=== PATIENT | male | born 1935 | race Caucasian/White ===

== ENCOUNTER 2017-04-27 16:38 | Inpatient (IN) ==
[2017-04-27] MEDS ORDERED: Ipratropium/Albuterol Neb 3 ML IH ONE ×2 (16:51→19:07)
--- NOTE | 2017-04-27 16:54 | Emergency Department Note ---
Disposition Clinical Impression: Acute exacerbation of chronic obstructive airways disease, Cardiac enzymes elevated Disposition: Admitted As Inpatient Condition: Fair Referrals: Enrrique Perez MD [Primary Care Provider] - Forms: ED Satisfaction Letter Time of Disposition: 19:09 SOB HPI - General Chief Complaint: ED Shortness of Breath/Dyspnea Stated Complaint: PRAVEENA Time Seen by Provider: 04/27/17 16:47 Source: patient Mode of arrival: ambulatory Limitations: no limitations Nursing Notes Reviewed: Yes Vital Signs Reviewed: Yes - History of Present Illness 81-year-old male who was seen by the urgent care last week started on Levaquin. Had a fever although today he's not febrile. He saw his doctor today and his concern was that he has pneumonia. states that he does not appear to be getting better from a respiratory point of view. 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 Consistency/Duration: constant Improves with: nothing Worsens with: exertion Known history of: COPD, congestive heart failure Associated symptoms: Reports: cough, wheezing Treatment prior to arrival: none - Related Data Home Medications Medication Instructions Recorded Confirmed Albuterol Sulfate [Proair 2 puff IH PRN PRN 09/07/15 04/08/17 Respiclick] Allopurinol [Zyloprim 100 MG] 100 mg PO DAILY 09/07/15 04/08/17 Aspirin 81 mg PO DAILY 09/07/15 04/08/17 Budesonide/Formoterol 160/4.5 2 puff IH BIDR 09/07/15 04/08/17 [Symbicort 160/4.5] Ezetimibe [Zetia] 10 mg PO DAILY 09/07/15 04/08/17 Furosemide [Lasix] 20 mg PO DAILY 09/07/15 04/08/17 Ipratropium/Albuterol Neb [Duoneb] 3 ml IH Q6HR PRN 09/07/15 04/08/17 Omeprazole [PriLOSEC] 20 mg PO DAILY 09/07/15 04/08/17 Gabapentin [Neurontin] 300 mg PO HS 12/02/16 04/08/17 Lisinopril [Zestril] 20 mg PO DAILY 12/02/16 04/08/17 Metoprolol XL (24 HR) Succ [Toprol 100 mg PO DAILY 12/02/16 04/08/17 Xl] Oxygen 2 l NS HS 12/02/16 04/08/17 Previous Rx's Medication Instructions Recorded Ondansetron ODT [Zofran ODT] 4 mg SL Q6HR PRN #15 tab.rapdis 01/16/17 Albuterol Neb [Proventil Neb] 2.5 mg IH QID PRN #120 inhsol 04/24/17 Promethazine/Codeine 5 - 10 ml PO Q8HR PRN 6 Days #120 04/24/17 [Phenergan/Codeine] ml levoFLOXacin [Levaquin] 250 mg PO DAILY #10 tablet 04/24/17 Allergies Allergy/AdvReac Type Severity Reaction Status Date / Time ibuprofen Allergy See Verified 04/08/17 14:29 Comments Aveyskh-Gzd-Wnn Reductase Allergy Swelling Verified 04/08/17 14:29 Inhibitor of [Statins] Lip/Tongue/Throat Verapamil Allergy See Verified 04/08/17 14:29 Comments All systems ED: reviewed and negative except as stated. Constitutional: Denies: fever, chills, weakness, weight change Eyes: Denies: eye pain, eye discharge, vision change ENT ED: Denies: ear pain, throat pain, dental pain, hearing loss, epistaxis, congestion, dysphagia Cardiovascular: Denies: chest pain, palpitations, dyspnea on exertion, edema, syncope Respiratory: Reports: cough, dyspnea, wheezes. Denies: hemoptysis, stridor Gastrointestinal: Denies: abdominal pain, nausea, vomiting, diarrhea, constipation, hematemesis, melena, hematochezia Genitourinary: Denies: urgency, dysuria, frequency, hematuria Musculoskeletal: Denies: back pain, neck pain, arthralgia, myalgia Integumentary: Denies: rash, abrasion, lesions Neurological: Denies: headache, weakness, numbness, paresthesias, confusion, abnormal gait, vertigo Psychiatric: Denies: anxiety, depression, suicidal thoughts, homicidal thoughts , auditory hallucinations, visual hallucinations Endocrine: Denies: fatigue Hematological/Lymphatic: Denies: easy bleeding, easy bruising Allergic/Immunologic: Denies: facial swelling, urticaria Past Medical History - Past Medical History Medical history: Reports: hypertension Surgical history: Reports: appendectomy, cataract, orthopedic, other, other Psychiatric history: Reports: anxiety - Social History Smoking Status: Never smoker Smokeless Tobacco Status: No Alcohol use: Reports: occasionally Drug use: Reports: none Physical Exam - General Limitations: no limitations General appearance: alert, in no apparent distress - Head Head exam: atraumatic, normocephalic, normal inspection - Eye Eye exam: Present: normal appearance, PERRL, EOMI - ENT ENT exam: normal exam, normal oropharynx, mucous membranes moist - Neck Neck exam: Present: normal inspection, full ROM, trachea midline - Chest Chest inspection: Present: normal inspection, symmetric chest wall rise - Respiratory Respiratory exam: Present: wheezes, accessory muscle use, prolonged expiratory phase - Cardiovascular Cardiovascular exam: Present: regular rate, normal rhythm, normal heart sounds - Abdominal Exam Abdominal exam: Present: soft, Non-Tender. Absent: tenderness, distention, guarding, rebound, rigidity - Extremities Exam Extremities exam: Present: normal inspection, full ROM. Absent: tenderness, pedal edema - Expanded Lower Extremity Exam Neurovascular/Tendon exam: Absent: motor deficit, sensory deficit, tendon deficit Gait: observed and normal - Back Exam Back exam: Present: normal inspection, full ROM. Absent: tenderness - Neurological Exam Neurological exam: Present: alert, oriented X3 - Psychiatric Psychiatric exam: Present: normal affect, normal mood - Skin Skin exam: Present: warm, dry, intact, normal color Course - Reevaluation(s) Reevaluation #1: 81-year-old comes in with increasing shortness of breath history of COPD. Also has a history of CHF. Chest x-ray shows no acute findings, normal BNP. Troponin is slightly elevated at 0.07. Time: 19:08 - Consultations Consultation #1: Discussed with , admit. Time: 19:16 Vital Signs Temperature 98.9 F 04/27/17 16:40 Pulse Rate 83 04/27/17 16:40 Respiratory Rate 16 04/27/17 16:40 Blood Pressure 116/72 04/27/17 16:40 O2 Sat by Pulse Oximetry 93 04/27/17 16:40 Temperature 98.9 F 04/27/17 16:40 Pulse Rate 79 04/27/17 19:14 Respiratory Rate 12 04/27/17 19:14 Blood Pressure 117/66 04/27/17 19:14 O2 Sat by Pulse Oximetry 98 04/27/17 19:14 Oxygen Delivery Oxygen Delivery Room Air Shortness of Breath/Dyspnea - Lab Data Lab results reviewed: Yes I reviewed the patient's lab results. Result diagrams: 04/27/17 17:07 04/27/17 17:07 Lab Results 04/27/17 04/27/17 04/27/17 Range/Units 17:07 17:07 17:07 WBC 6.1 (4.3-11.1) K/mcL RBC 3.02 L (4.19-5.50) M/mcL Hgb 10.2 L (12.9-16.9) g/dL Hct 30.8 L (37.5-50.1) % MCV 102.0 H (83.0-100.0) fL MCH 33.8 H (28.0-33.3) pg MCHC 33.1 (31.6-35.5) g/dL RDW 14.6 H (11.5-14.5) % Plt Count 115 L (140-400) K/mcL MPV 10.0 (9.4-12.4) fL Immature Gran % 0.7 (0-4) % Seg Neutrophils % 56.2 % Lymphocytes % 32.8 % Monocytes % 8.8 % Eosinophils % 1.0 % Basophils % 0.5 % Neutrophils # 3.5 (1.6-8.9) K/mcL Lymphocytes # 2.0 (0.6-4.6) K/mcL Monocytes # 0.5 (0.0-1.3) K/mcL Eosinophils # 0.1 (0.0-0.6) K/mcL Basophils # 0.0 (0.0-0.2) K/mcL Sodium 127 L (136-145) mEq/L Potassium 4.5 (3.5-5.1) mEq/L Chloride 95 L (98-107) mEq/L Carbon Dioxide 23 (23-29) mEq/L BUN 45 H (8-23) mg/dL Creatinine 2.48 H (0.70-1.30) mg/dL Est GFR ( Amer) 31 L (> 60) Est GFR (Non-Af Amer) 25 L (> 60) BUN/Creatinine Ratio 18 (6-26) Glucose 120 H (70-105) mg/dL Calculated Osmolality 277 L (280-300) Lactic Acid 1.4 (0.5-2.2) mmol/L Calcium 8.7 (8.6-10.3) mg/dL Troponin I (< 0.04) ng/mL B-Natriuretic Peptide (Less than 100) pg/mL 04/27/17 04/27/17 Range/Units 17:07 17:07 WBC (4.3-11.1) K/mcL RBC (4.19-5.50) M/mcL Hgb (12.9-16.9) g/dL Hct (37.5-50.1) % MCV (83.0-100.0) fL MCH (28.0-33.3) pg MCHC (31.6-35.5) g/dL RDW (11.5-14.5) % Plt Count (140-400) K/mcL MPV (9.4-12.4) fL Immature Gran % (0-4) % Seg Neutrophils % % Lymphocytes % % Monocytes % % Eosinophils % % Basophils % % Neutrophils # (1.6-8.9) K/mcL Lymphocytes # (0.6-4.6) K/mcL Monocytes # (0.0-1.3) K/mcL Eosinophils # (0.0-0.6) K/mcL Basophils # (0.0-0.2) K/mcL Sodium (136-145) mEq/L Potassium (3.5-5.1) mEq/L Chloride (98-107) mEq/L Carbon Dioxide (23-29) mEq/L BUN (8-23) mg/dL Creatinine (0.70-1.30) mg/dL Est GFR ( Amer) (> 60) Est GFR (Non-Af Amer) (> 60) BUN/Creatinine Ratio (6-26) Glucose (70-105) mg/dL Calculated Osmolality (280-300) Lactic Acid (0.5-2.2) mmol/L Calcium (8.6-10.3) mg/dL Troponin I 0.07 H* (< 0.04) ng/mL B-Natriuretic Peptide 41 (Less than 100) pg/mL - Radiology Data Radiology results reviewed: Yes I reviewed the patient's radiology results. Chest X-Ray 04/27/17 16:51 IMPRESSION: No acute process. Stable exam. D/ / Nabil Katz MD / Nabil Katz MD Interpreting Provider: Nabil Katz MD - EKG Data EKG attestation: Yes I reviewed and interpreted this EKG. EKG shows normal: Reports: sinus rhythm Rate: Reports: normal Rhythm: Reports: NSR, PAC's Interpretation: Reports: no acute changes
[2017-04-27 17:19] LABS: Basophils % 0.5 %; Eosinophils # 0.1 K/mcL (0.0-0.6); Hematocrit 30.8 % (37.5-50.1); Hemoglobin 10.2 g/dL (12.9-16.9); Immature Granulocytes % 0.7 % (0-4); Lymphocytes % 32.8 %; Mean Corpuscular HGB Conc 33.1 g/dL (31.6-35.5); Mean Corpuscular Hemoglobin 33.8 pg (28.0-33.3); Monocytes # 0.5 K/mcL (0.0-1.3); Monocytes % 8.8 %; Neutrophils # 3.5 K/mcL (1.6-8.9); Platelet Count 115 K/mcL (140-400); Red Blood Count 3.02 M/mcL (4.19-5.50); Red Cell Distribution Width 14.6 % (11.5-14.5); Segmented Neutrophils % 56.2 %
[2017-04-27 17:31] LABS: Calcium 8.7 mg/dL (8.6-10.3); Potassium 4.5 mEq/L (3.5-5.1)
[2017-04-27] MEDS ORDERED: methylPREDNISolone 125 MG/2 ML VIAL IVP ONE (19:07)
--- NOTE | 2017-04-27 19:48 | Internal Med History&Physical ---
Date of Encounter: 04/27/17 Time of Encounter: 19:45 Assessment and Plan (1) HOMER (acute kidney injury) Current visit: Yes Status: Acute Acute on chronic kidney failure was started on IV hydration does not improve or consult nephrology (2) Hyperlipemia Current visit: Yes Status: Chronic Chronic we will recheck in a.m. Qualifiers: Hyperlipidemia type: pure hypercholesterolemia Qualified Code(s): E78.00 - Pure hypercholesterolemia, unspecified; E78.0 - Pure hypercholesterolemia (3) Acute exacerbation of chronic obstructive airways disease Current visit: Yes Status: Acute Acute COPD exacerbation due to bronchitis. Patient on steroids and DuoNeb and Levaquin (4) Cardiac enzymes elevated Current visit: Yes Status: Acute Elevated troponin probably due to her renal failure with transient troponin (5) Bronchitis Current visit: No Status: Acute Acute bronchitis partially treated with Levaquin by mouth at patient (6) Alcohol use Current visit: No Status: Chronic (7) CKD (chronic kidney disease) stage 3, GFR 30-59 ml/min Current visit: No Status: Chronic Internal Medicine - H&P: HPI Chief complaint: sob and wheezing Admitted From: Emergency Dept Plans for Post Hospital Care: Home History of present illness: Mr. Vasquez is a 81 year old male Patient with history of COPD, hypertension, high cholesterol, congestive heart failure, CKd, alcohol use, CAD . Patient was seen in urgent care center due to fever chills and shortness of breath and wheezing and was prescribed Levaquin on Wednesday the patient is not getting better and then brought back to the emergency room concern for pneumonia patient continues to cough, more shortness of breath and congestion chest x-ray emergency room does not show pneumonia the patient is wheezing he be admitted for further evaluation troponin is mildly elevated 0.07 is not having any chest pain. Past Med Surg Social Fam HX - Past Medical History Medical history: CHF, COPD, coronary artery disease, hyperlipidemia, hypertension Psychiatric history: anxiety - Past Surgical History Surgical History: appendectomy, cataract, orthopedic, other, other - Social History Smoking Status: Never smoker Smokeless Tobacco Status: No Alcohol use: occasionally Drug use: none - Family History Mother Family Member Ethnicity: Non- Living Status: Hx Family Cardiac Disorders: No Hx Family Respiratory Disorders: No Hx Family Cancer: No Hx Family GI Disorders: No Hx Family Endocrine Disorder: No Hx Family Neuromuscular Disorders: No Hx Family Neurologic Disorders: No Hx Family HEENT Disorders: No Hx Family Autoimmune Disorders: No Internal Medicine - H&P: Meds Albuterol Sulfate [Proair Respiclick] 2 puff IH PRN PRN 09/07/15 [History] Allopurinol [Zyloprim 100 MG] 100 mg PO DAILY 09/07/15 [History] Aspirin 81 mg PO DAILY 09/07/15 [History] Budesonide/Formoterol 160/4.5 [Symbicort 160/4.5] 2 puff IH BIDR 09/07/15 [ History] Ezetimibe [Zetia] 10 mg PO DAILY 09/07/15 [History] Furosemide [Lasix] 20 mg PO DAILY 09/07/15 [History] Ipratropium/Albuterol Neb [Duoneb] 3 ml IH Q6HR PRN 09/07/15 [History] Omeprazole [PriLOSEC] 20 mg PO DAILY 09/07/15 [History] Gabapentin [Neurontin] 300 mg PO HS 12/02/16 [History] Lisinopril [Zestril] 20 mg PO DAILY 12/02/16 [History] Metoprolol XL (24 HR) Succ [Toprol Xl] 100 mg PO DAILY 12/02/16 [History] Oxygen 2 l NS HS 12/02/16 [History] Albuterol Neb [Proventil Neb] 2.5 mg IH QID PRN #120 inhsol 04/24/17 [Rx] Promethazine/Codeine [Phenergan/Codeine] 5 - 10 ml PO Q8HR PRN 6 Days #120 ml [Rx] levoFLOXacin [Levaquin] 250 mg PO DAILY #10 tablet 04/24/17 [Rx] Cyanocobalamin (Vitamin B-12) [Vitamin B12] 1,000 mcg PO DAILY 04/27/17 [History ] Lidocaine Patch [Lidoderm 5% patch] 1 - 2 patch TD DAILY PRN 04/27/17 [History] Multivitamin [One Daily Multivitamin] 1 each PO DAILY 04/27/17 [History] 3 Allergy/AdvReac Type Severity Reaction Status Date / Time ibuprofen Allergy See Verified 04/08/17 14:29 Comments Whxwsiy-Ifw-Afu Reductase Allergy Swelling Verified 04/08/17 14:29 Inhibitor of [Statins] Lip/Tongue/Throat Verapamil Allergy See Verified 04/08/17 14:29 Comments All Systems PM: A 10-system review of systems was performed and is negative for pertinent findings except as documented above in the HPI. - Constitutional Constitutional: chills, fever(s) - EENT Eyes: no change in vision, no discharge, no pain, no photophobia Ears: no ear discharge, no ear pain, no tinnitus Nose, mouth and throat: no dysphagia, no nasal discharge, no neck pain, no sore throat - Cardiovascular Cardiovascular ROS IM: dyspnea, dyspnea on exertion - Respiratory Respiratory: cough, dyspnea, dyspnea on exertion - Gastrointestinal Gastrointestinal: no abdominal pain, no diarrhea, no hematemesis, no hematochezia, no melena, no nausea, no vomiting - Musculoskeletal Musculoskeletal ROS IM: no numbness, no tingling - Constitutional Vitals: Temp Pulse Resp BP Pulse Ox 98.9 F 79 18 117/66 97 04/27/17 16:40 04/27/17 19:14 04/27/17 19:24 04/27/17 19:14 04/27/17 19:24 General appearance: Present: mild distress - Head Head exam: Present: atraumatic, normocephalic - Neck Neck exam general surgery: Present: supple, trachea midline. Absent: lymphadenopathy - Respiratory Respiratory exam: Present: prolonged expiratory phase, rhonchi, wheezes - Cardiovascular Cardiovascular exam: Present: RRR, +S1, +S2. Absent: diastolic murmur, gallop, rubs, systolic murmur - GI/Abdominal GI/Abdominal exam: Present: normal bowel sounds, soft, no peritoneal signs. Absent: distended, tenderness - Extremities Exam Extremities exam: Present: warm, radial pulses palpable and symmetrical. Absent : calf tenderness, cyanotic, pedal edema Internal Med - H&P Results - Labs CBC & Chem 7: 04/27/17 17:07 04/27/17 17:07 Labs: Short CBC 04/27/17 Range/Units 17:07 WBC 6.1 (4.3-11.1) K/mcL Hgb 10.2 L (12.9-16.9) g/dL Hct 30.8 L (37.5-50.1) % Plt Count 115 L (140-400) K/mcL Neutrophils # 3.5 (1.6-8.9) K/mcL BMP 04/27/17 17:07 Sodium 127 L Potassium 4.5 Chloride 95 L Carbon Dioxide 23 BUN 45 H Creatinine 2.48 H Glucose 120 H Calcium 8.7 Cardiac Enzymes 04/27/17 Range/Units 17:07 Troponin I 0.07 H* (< 0.04) ng/mL - Impressions ITS Impressions Chest X-Ray 04/27/17 16:51 IMPRESSION: No acute process. Stable exam. D/ / Nabil Katz MD / Nabil Katz MD Interpreting Provider: Nabil Katz MD
[2017-04-27] MEDS ORDERED: Naloxone 0.4 MG/ML INJ IVP PRN (19:53)
[2017-04-27] MEDS ORDERED: traMADol 50 MG TABLET PO PRN (19:53)
[2017-04-27] MEDS ORDERED: Acetaminophen 325 MG TABLET PO PRN (19:53)
[2017-04-27] MEDS ORDERED: Ipratropium/Albuterol Neb 3 ML IH PRN (19:57)
[2017-04-27] MEDS: Ipratropium/Albuterol Neb 3 ML IH SCH (20:52)
[2017-04-27] MEDS: Gabapentin 300 MG CAPSULE PO SCH (21:37)
[2017-04-27] MEDS: 0.9 % Sodium Chloride 1,000 ML IVC SCH (21:37)
[2017-04-27] MEDS ORDERED: Levofloxacin 750 MG/150 ML 750 MG/150 ML BAG IVPB SCH (23:00)
[2017-04-27] MEDS: Promethazine/Codeine Oral Sryup 5 ML UDC PO PRN (23:38)
[2017-04-28] MEDS: Ipratropium/Albuterol Neb 3 ML IH SCH ×7 (00:09→23:37)
[2017-04-28 03:26] LABS: Hematocrit 28.8 % (37.5-50.1); Hemoglobin 9.7 g/dL (12.9-16.9); Immature Granulocytes % 0.6 % (0-4); Lymphocytes # 0.9 K/mcL (0.6-4.6); Lymphocytes % 13.2 %; Mean Corpuscular HGB Conc 33.7 g/dL (31.6-35.5); Mean Corpuscular Hemoglobin 33.2 pg (28.0-33.3); Mean Corpuscular Volume 98.6 fL (83.0-100.0); Monocytes # 0.2 K/mcL (0.0-1.3); Monocytes % 3.7 %; Neutrophils # 5.3 K/mcL (1.6-8.9); Platelet Count 116 K/mcL (140-400); Red Blood Count 2.92 M/mcL (4.19-5.50); Red Cell Distribution Width 14.3 % (11.5-14.5); Segmented Neutrophils % 82.5 %
[2017-04-28 03:42] LABS: Albumin 3.6 g/dL (3.5-5.7); Albumin/Globulin Ratio 1.3 (1.1-2.2); Bilirubin,Total 0.6 mg/dL (0.3-1.0); Calcium 8.6 mg/dL (8.6-10.3); Chol/HDL Ratio 4.3 (0-4.9); Globulin 2.8 g/dL (2.4-3.5); Magnesium 1.9 mg/dL (1.6-2.6); Potassium 4.5 mEq/L (3.5-5.1); Total Protein 6.4 g/dL (6.4-8.9)
[2017-04-28] MEDS: MethylPREDNISolone 40 MG/ML VIAL IVP SCH ×2 (04:45→11:54)
[2017-04-28] MEDS ORDERED: *HR* Enoxaparin 40 MG/0.4 ML SYRINGE SQ SCH (06:00)
[2017-04-28] MEDS: amLODIPine 5 MG TABLET PO SCH (09:37)
[2017-04-28] MEDS: Aspirin 81 MG TAB.CHEW PO SCH (09:37)
[2017-04-28] MEDS: Metoprolol XL (24 HR) Succ 50 MG TAB.ER.24H PO SCH (09:37)
[2017-04-28] MEDS: Cyanocobalamin (B-12) 1,000 MCG TABLET PO SCH (09:37)
[2017-04-28] MEDS: Multivit/Ca/Min/Fe/FA 1 TAB TABLET PO SCH (09:37)
[2017-04-28] MEDS: 0.9 % Sodium Chloride 1,000 ML IVC SCH (10:05)
--- NOTE | 2017-04-28 12:46 | Electrocardiograph Report ---
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
[2017-04-28] MEDS: Promethazine/Codeine Oral Sryup 5 ML UDC PO PRN (13:58)
[2017-04-28] MEDS ORDERED: Saliva Stimulant 100ml BOTTLE PO PRN (13:59)
--- NOTE | 2017-04-28 15:49 | Internal Med Progress Note ---
Date of Encounter: 04/28/17 Time of Encounter: 14:25 - Assessment and plan (1) Acute kidney injury superimposed on chronic kidney disease Current Visit: Yes Status: Acute Assessment and plan: Improving continue gentle IV fluid hydration continue to hold nephrotoxic agents will closely monitor renal function (2) Acute exacerbation of chronic obstructive airways disease Current Visit: Yes Status: Acute Assessment and plan: Clinically improving Will decrease solumedrol 40mg IV q12h bronchodilator support PO levaquin (day 07/29) O2 supplementation monitor respiratory status (3) Cardiac enzymes elevated Current Visit: Yes Status: Acute Assessment and plan: unlikely ACS in the setting of HOMER no chest pain or signs of angina present (4) Bronchitis Current Visit: No Status: Acute Assessment and plan: continue systemic steroids and PO abx (5) Hyponatremia Current Visit: No Status: Acute Assessment and plan: continue IV fluid supplementation continue to closely monitor clinically asymptomatic (6) DVT prophylaxis Current Visit: Yes Status: Acute Assessment and plan: Lovenox SQ - Subjective Interval history: Patient seen and examined at bedside. Resting in bed and reports of feeling significantly better compared to previous day. Pt was on PO levaquin as outpatient for URI, today is day 07/29 of levaquin, will continue - Constitutional Vitals: Temp Pulse Resp BP Pulse Ox 98.1 F 98 18 101/68 92 04/28/17 11:37 04/28/17 11:37 04/28/17 11:41 04/28/17 11:37 04/28/17 11:41 General appearance: Present: A&O X 3, no acute distress, obese, answers questions appropriately - Head Head exam: Present: atraumatic, normocephalic - Eye Eye exam: Present: conjuntiva pink, sclera anicteric - Respiratory Respiratory exam: Absent: respiratory distress, wheezes (mild bibasilar rales ) - Cardiovascular Cardiovascular exam: Present: RRR, +S1, +S2. Absent: diastolic murmur, gallop, rubs, systolic murmur - GI/Abdominal GI/Abdominal exam: Present: normal bowel sounds, soft, no peritoneal signs. Absent: distended, tenderness - Extremities Exam Extremities exam: Present: warm, radial pulses palpable and symmetrical. Absent : calf tenderness - Neurological Exam Neurological exam: Present: alert, oriented X3 Internal Medicine: Result - Labs CBC & Chem 7: 04/28/17 02:59 04/28/17 02:59 Labs: Short CBC 04/28/17 Range/Units 02:59 WBC 6.4 (4.3-11.1) K/mcL Hgb 9.7 L (12.9-16.9) g/dL Hct 28.8 L (37.5-50.1) % Plt Count 116 L (140-400) K/mcL Neutrophils # 5.3 (1.6-8.9) K/mcL BMP 04/28/17 02:59 Sodium 127 L Potassium 4.5 Chloride 96 L Carbon Dioxide 22 L BUN 44 H Creatinine 2.10 H Glucose 203 H Calcium 8.6 Cardiac Enzymes 04/27/17 04/28/17 04/28/17 Range/Units 20:19 02:59 08:37 Troponin I 0.05 H* 0.05 H* 0.04 H* (< 0.04) ng/mL Liver Function 04/28/17 Range/Units 02:59 Total Bilirubin 0.6 (0.3-1.0) mg/dL AST 44 H (13-39) Units/L ALT 16 (7-52) Units/L Alkaline Phosphatase 46 (34-104) Units/L Albumin 3.6 (3.5-5.7) g/dL Consult Discharge Plan - Plan Referrals: Enrrique Perez MD [Primary Care Provider] - (WEB REQUEST SENT ON 04/28/17 )
[2017-04-28] MEDS: Gabapentin 300 MG CAPSULE PO SCH (20:42)
[2017-04-29] MEDS ORDERED: MethylPREDNISolone 40 MG/ML VIAL IVP SCH
[2017-04-29] MEDS: Ipratropium/Albuterol Neb 3 ML IH SCH ×6 (03:33→23:40)
[2017-04-29 05:47] LABS: Hematocrit 28.5 % (37.5-50.1); Hemoglobin 9.3 g/dL (12.9-16.9); Immature Granulocytes % 0.5 % (0-4); Lymphocytes % 13.1 %; Mean Corpuscular HGB Conc 32.6 g/dL (31.6-35.5); Mean Corpuscular Hemoglobin 33.2 pg (28.0-33.3); Mean Corpuscular Volume 101.8 fL (83.0-100.0); Mean Platelet Volume 10.5 fL (9.4-12.4); Monocytes # 0.4 K/mcL (0.0-1.3); Monocytes % 5.2 %; Neutrophils # 6.2 K/mcL (1.6-8.9); Nucleated Red Blood Cells 0.3 /100 WBC (0); Platelet Count 127 K/mcL (140-400); Red Cell Distribution Width 14.1 % (11.5-14.5); Segmented Neutrophils % 81.2 %
[2017-04-29] MEDS: Promethazine/Codeine Oral Sryup 5 ML UDC PO PRN ×2 (05:52→21:03)
[2017-04-29 06:00] LABS: Calcium 8.7 mg/dL (8.6-10.3); Phosphorous 3.4 mg/dL (2.7-4.5); Potassium 4.5 mEq/L (3.5-5.1)
[2017-04-29] MEDS ORDERED: *HR* Enoxaparin 30 MG/0.3 ML SYRINGE SQ SCH (06:00)
[2017-04-29] MEDS: Multivit/Ca/Min/Fe/FA 1 TAB TABLET PO SCH (10:23)
[2017-04-29] MEDS: Cyanocobalamin (B-12) 1,000 MCG TABLET PO SCH (10:23)
[2017-04-29] MEDS: Aspirin 81 MG TAB.CHEW PO SCH (10:23)
[2017-04-29] MEDS: amLODIPine 5 MG TABLET PO SCH (10:23)
[2017-04-29] MEDS: MethylPREDNISolone 40 MG/ML VIAL IVP SCH ×2 (10:24→21:36)
[2017-04-29] MEDS: Metoprolol XL (24 HR) Succ 50 MG TAB.ER.24H PO SCH (10:25)
[2017-04-29] MEDS ORDERED: *HR* LORazepam 2 MG/ML VIAL IVP ONE (13:39)
[2017-04-29] MEDS ORDERED: ALPRAZolam 0.25 MG TABLET PO ONE (13:48)
--- NOTE | 2017-04-29 15:57 | Internal Med Progress Note ---
Date of Encounter: 04/29/17 Time of Encounter: 13:25 - Assessment and plan (1) Acute kidney injury superimposed on chronic kidney disease Current Visit: Yes Status: Acute Assessment and plan: Improving d/c IV fluids as pt noted to have minimal bibasilar rales continue to hold nephrotoxic agents will closely monitor renal function (2) Acute exacerbation of chronic obstructive airways disease Current Visit: Yes Status: Acute Assessment and plan: Clinically improving Will decrease solumedrol 40mg IV q12h bronchodilator support PO levaquin (day 08/29) O2 supplementation monitor respiratory status (3) Cardiac enzymes elevated Current Visit: Yes Status: Acute Assessment and plan: unlikely ACS in the setting of HOMER no chest pain or signs of angina present (4) Bronchitis Current Visit: No Status: Acute Assessment and plan: continue systemic steroids and PO abx (5) Hyponatremia Current Visit: No Status: Acute Assessment and plan: improved continue to closely monitor clinically asymptomatic (6) DVT prophylaxis Current Visit: Yes Status: Acute Assessment and plan: Lovenox SQ - Subjective Interval history: Patient seen and examined at bedside. Resting in bed and reports of feeling significantly better compared to previous day. Pt was on PO levaquin as outpatient for URI, today is day 08/29 of levaquin, will continue - Constitutional Vitals: Temp Pulse Resp BP Pulse Ox 97.8 F 88 18 125/69 94 04/29/17 15:33 04/29/17 15:33 04/29/17 15:33 04/29/17 15:33 04/29/17 15:33 General appearance: Present: A&O X 3, no acute distress, obese, answers questions appropriately - Head Head exam: Present: atraumatic, normocephalic - Eye Eye exam: Present: conjuntiva pink, sclera anicteric - Respiratory Respiratory exam: Absent: respiratory distress, wheezes Additional comments: minimal bibasilar rales - Cardiovascular Cardiovascular exam: Present: RRR, +S1, +S2. Absent: diastolic murmur, gallop, rubs, systolic murmur - GI/Abdominal GI/Abdominal exam: Present: normal bowel sounds, soft. Absent: distended, tenderness - Extremities Exam Extremities exam: Present: warm, radial pulses palpable and symmetrical. Absent : calf tenderness Internal Medicine: Result - Labs CBC & Chem 7: 04/29/17 05:10 04/29/17 05:10 Labs: Short CBC 04/29/17 Range/Units 05:10 WBC 7.6 (4.3-11.1) K/mcL Hgb 9.3 L (12.9-16.9) g/dL Hct 28.5 L (37.5-50.1) % Plt Count 127 L (140-400) K/mcL Neutrophils # 6.2 (1.6-8.9) K/mcL BMP 04/29/17 05:10 Sodium 132 L Potassium 4.5 Chloride 101 Carbon Dioxide 25 BUN 47 H Creatinine 1.83 H Glucose 170 H Calcium 8.7 Consult Discharge Plan - Plan Referrals: Enrrique Perez MD [Primary Care Provider] - (WEB REQUEST SENT ON 04/28/17 )
[2017-04-29] MEDS: Fluticasone Propionate Nasal 50 MCG/SPRAY BOTTLE NS SCH (17:15)
[2017-04-29] MEDS: Sennosides/Docusate Sodium TABLET PO SCH (20:59)
[2017-04-29] MEDS: Gabapentin 300 MG CAPSULE PO SCH (20:59)
[2017-04-29] MEDS ORDERED: levoFLOXacin 750 MG TABLET PO SCH (21:00)
[2017-04-30] MEDS: Ipratropium/Albuterol Neb 3 ML IH SCH ×3 (03:35→11:17)
[2017-04-30 04:49] LABS: Basophils % 0.1 %; Hematocrit 28.3 % (37.5-50.1); Hemoglobin 9.3 g/dL (12.9-16.9); Immature Granulocytes % 1.3 % (0-4); Lymphocytes # 1.1 K/mcL (0.6-4.6); Lymphocytes % 14.3 %; Mean Corpuscular HGB Conc 32.9 g/dL (31.6-35.5); Mean Corpuscular Hemoglobin 33.8 pg (28.0-33.3); Mean Corpuscular Volume 102.9 fL (83.0-100.0); Mean Platelet Volume 10.6 fL (9.4-12.4); Monocytes # 0.4 K/mcL (0.0-1.3); Monocytes % 4.7 %; Neutrophils # 6.3 K/mcL (1.6-8.9); Nucleated Red Blood Cells 0.5 /100 WBC (0); Platelet Count 129 K/mcL (140-400); Red Blood Count 2.75 M/mcL (4.19-5.50); Red Cell Distribution Width 14.2 % (11.5-14.5); Segmented Neutrophils % 79.6 %
[2017-04-30 05:18] LABS: Magnesium 2.1 mg/dL (1.6-2.6); Phosphorous 3.4 mg/dL (2.7-4.5); Potassium 4.4 mEq/L (3.5-5.1)
[2017-04-30 05:52] LABS: Platelet Estimate Decreased (Normal)
[2017-04-30] MEDS ORDERED: *HR* Enoxaparin 40 MG/0.4 ML SYRINGE SQ SCH (06:00)
[2017-04-30] MEDS: Sennosides/Docusate Sodium TABLET PO SCH (08:58)
[2017-04-30] MEDS: amLODIPine 5 MG TABLET PO SCH (08:58)
[2017-04-30] MEDS: Metoprolol XL (24 HR) Succ 50 MG TAB.ER.24H PO SCH (08:59)
[2017-04-30] MEDS: Aspirin 81 MG TAB.CHEW PO SCH (08:59)
[2017-04-30] MEDS: Cyanocobalamin (B-12) 1,000 MCG TABLET PO SCH (08:59)
[2017-04-30] MEDS: Multivit/Ca/Min/Fe/FA 1 TAB TABLET PO SCH (08:59)
[2017-04-30] MEDS: Fluticasone Propionate Nasal 50 MCG/SPRAY BOTTLE NS SCH (08:59)
[2017-04-30] MEDS ORDERED: predniSONE 20 MG TABLET PO SCH (09:00)
[2017-04-30 10:56] VITALS: BP 140/72
--- NOTE | 2017-04-30 12:15 | Discharge Summary ---
Date of Encounter: 04/30/17 Time of Encounter: 10:55 - Discharge Diagnosis (1) Acute kidney injury superimposed on chronic kidney disease Priority: Secondary Status: Acute (2) Acute exacerbation of chronic obstructive airways disease Priority: Primary Status: Acute (3) Cardiac enzymes elevated Priority: Secondary Status: Acute (4) Bronchitis Priority: Secondary Status: Acute (5) Hyponatremia Priority: Secondary Status: Acute (6) DVT prophylaxis Priority: Secondary Status: Acute - Discharge Medications Prescriptions: levoFLOXacin [Levaquin] 750 mg PO Q48H #1 tablet predniSONE [PredniSONE] 40 mg PO DAILY #5 tablet Home Medications: Albuterol Sulfate [Proair Respiclick] 2 puff IH Q4H PRN 09/07/15 [History] Allopurinol [Zyloprim 100 MG] 100 mg PO DAILY 09/07/15 [History] Aspirin 81 mg PO DAILY 09/07/15 [History] Budesonide/Formoterol 160/4.5 [Symbicort 160/4.5] 2 puff IH BIDR 09/07/15 [ History] Ezetimibe [Zetia] 10 mg PO DAILY 09/07/15 [History] Furosemide [Lasix] 20 mg PO BID 09/07/15 [History] Ipratropium/Albuterol Neb [Duoneb] 3 ml IH Q6HR PRN 09/07/15 [History] Omeprazole [PriLOSEC] 20 mg PO DAILY 09/07/15 [History] Gabapentin [Neurontin] 300 mg PO HS 12/02/16 [History] Lisinopril [Zestril] 20 mg PO BID 12/02/16 [History] Metoprolol XL (24 HR) Succ [Toprol Xl] 100 mg PO DAILY 12/02/16 [History] Oxygen 2 l NS HS 12/02/16 [History] Albuterol Neb [Proventil Neb] 2.5 mg IH QID PRN #120 inhsol 04/24/17 [Rx] Promethazine/Codeine [Phenergan/Codeine] 5 - 10 ml PO Q8HR PRN 6 Days #120 ml [Rx] Cyanocobalamin (Vitamin B-12) [Vitamin B12] 1,000 mcg PO DAILY 04/27/17 [History ] Lidocaine Patch [Lidoderm 5% patch] 1 - 2 patch TD DAILY PRN 04/27/17 [History] Multivitamin [One Daily Multivitamin] 1 each PO DAILY 04/27/17 [History] levoFLOXacin [Levaquin] 750 mg PO Q48H #1 tablet 04/30/17 [Rx] predniSONE [PredniSONE] 40 mg PO DAILY #5 tablet 04/30/17 [Rx] Allergies/Adverse Reactions: 3 Allergy/AdvReac Type Severity Reaction Status Date / Time ibuprofen Allergy See Verified 04/08/17 14:29 Comments Verufeq-Awz-Ubr Reductase Allergy Swelling Verified 04/08/17 14:29 Inhibitor of [Statins] Lip/Tongue/Throat Verapamil Allergy See Verified 04/08/17 14:29 Comments Date of admission: 04/27/17 19:53 Primary care physician: Enrrique Perez MD Consults: 04/28/17 15:43 Consult to Occupational Therapy [CONS] Routine Comment: Evaluate, develop and implement POC Reason for Consult: evaluation for disposition Consult to Physical Therapy [CONS] Routine Comment: Evaluate, develop and implement POC Reason for Consult: evaluation for disposition Discharging clinician: Inocencia Hebert Anticipated date of discharge: 04/30/17 - Patient Status Disposition: Home Health Service Condition: Good Functional capacity at discharge: uses cane/walker Overall status at discharge: patient is back to baseline - Ambulatory Orders Ambulatory Orders: Basic Metabolic Panel [CHEM] Time Frame: 1 Week, Facility: [facility], Location: Lab - Discharge Instructions Follow Up With: Enrrique Perez MD [Primary Care Provider] - (WEB REQUEST SENT ON 04/28/17 ) Additional Instructions: Please follow up with your primary care physician within five days after your discharge from the hospital. Please obtain the prescribed lab work prior to your follow up with your primary care physician to monitor your renal function. Continue to hold your home dose of Lasix until your follow up with your primary care physician. You can resume your home dose of Lisinopril. If you are noted to have swelling of your feet and difficulty breathing, you can resume your home dose of lasix prior to your follow up with your primary care physician. Continue Prednisone for five more days. Continue Levaquin 750mg once a day. Your next and last dose is on 05/02/17. Resume all other medicaitions as prescribed by your primary care physician. - Diet and Activity Activity: resume usual activities as tolerated, wear oxygen at all times, wear oxygen at night Diet: low fat, low cholesterol, low salt diet Hospital course: Mr. Vasquez is a 81 year old male with PMH Of COPD on LTOT, HTN, HLD, CHF, CKD, CAD who was admitted for acute respiratory distress secondary to COPD exacerbation and HOMER. He was started on systemic steroids and was continued on his home abx that he was taking for bronchitis. Pt was given gentle IV fluid hydration to which he responded appropriately with improvement in his renal function. His home dose of lasix and lisinopril were placed on hold. He was evaluated by physical therapy and no additional services were recommended. As per patient and his 's request, home health services were arranged for nursing services. Pt is currently back to his baseline respiratory status and hemodynamically stable. He will be discharged to home with follow up with primary care physician. Pt and demonstrate understanding of his diagnosis and agree with the discharge care and plan. - Time Spent with Patient Total time spent providing and/or coordinating discharge services: Greater than 30 minutes - Constitutional Vitals: Temp Pulse Resp BP Pulse Ox 97.6 F 84 17 140/72 95 04/30/17 10:52 04/30/17 10:52 04/30/17 10:52 04/30/17 10:52 04/30/17 10:52 General appearance: Present: A&O X 3, no acute distress, obese, answers questions appropriately - Head Head exam: Present: atraumatic, normocephalic - Eye Eye exam: Present: conjuntiva pink, sclera anicteric - Respiratory Respiratory exam: Present: CTAB. Absent: respiratory distress, wheezes - Cardiovascular Cardiovascular exam: Present: RRR, +S1, +S2. Absent: diastolic murmur, gallop, rubs, systolic murmur - GI/Abdominal GI/Abdominal exam: Present: normal bowel sounds, soft, no peritoneal signs. Absent: distended, tenderness - Extremities Exam Extremities exam: Present: warm, radial pulses palpable and symmetrical. Absent : calf tenderness - Neurological Exam Neurological exam: Present: alert, oriented X3 - VTE Documentation of Mechanical Device: Graduated compression elastic hosiery
--- NOTE | 2017-04-30 12:21 | Physician Discharge Referral ---
Home Health/Hosp Referral Info Transfer to: Home Health Provider in Charge Post Discharge: PCP - Diagnosis (1) Acute kidney injury superimposed on chronic kidney disease Priority: Secondary Status: Acute (2) Acute exacerbation of chronic obstructive airways disease Priority: Primary Status: Acute (3) Cardiac enzymes elevated Priority: Secondary Status: Acute (4) Bronchitis Priority: Secondary Status: Acute (5) Hyponatremia Priority: Secondary Status: Acute (6) DVT prophylaxis Priority: Secondary Status: Acute - Respiratory Orders Smoking Cessation: Smoking cessation has been advised. For more information, call the [employer] Quit Line at [phone]. - Services Needed Following services are medically necessary services: Nursing - Transfer Medications Prescriptions: levoFLOXacin [Levaquin] 750 mg PO Q48H #1 tablet predniSONE [PredniSONE] 40 mg PO DAILY #5 tablet Home Medications: Albuterol Sulfate [Proair Respiclick] 2 puff IH Q4H PRN 09/07/15 [History] Allopurinol [Zyloprim 100 MG] 100 mg PO DAILY 09/07/15 [History] Aspirin 81 mg PO DAILY 09/07/15 [History] Budesonide/Formoterol 160/4.5 [Symbicort 160/4.5] 2 puff IH BIDR 09/07/15 [ History] Ezetimibe [Zetia] 10 mg PO DAILY 09/07/15 [History] Furosemide [Lasix] 20 mg PO BID 09/07/15 [History] Ipratropium/Albuterol Neb [Duoneb] 3 ml IH Q6HR PRN 09/07/15 [History] Omeprazole [PriLOSEC] 20 mg PO DAILY 09/07/15 [History] Gabapentin [Neurontin] 300 mg PO HS 12/02/16 [History] Lisinopril [Zestril] 20 mg PO BID 12/02/16 [History] Metoprolol XL (24 HR) Succ [Toprol Xl] 100 mg PO DAILY 12/02/16 [History] Oxygen 2 l NS HS 12/02/16 [History] Albuterol Neb [Proventil Neb] 2.5 mg IH QID PRN #120 inhsol 04/24/17 [Rx] Promethazine/Codeine [Phenergan/Codeine] 5 - 10 ml PO Q8HR PRN 6 Days #120 ml [Rx] Cyanocobalamin (Vitamin B-12) [Vitamin B12] 1,000 mcg PO DAILY 04/27/17 [History ] Lidocaine Patch [Lidoderm 5% patch] 1 - 2 patch TD DAILY PRN 04/27/17 [History] Multivitamin [One Daily Multivitamin] 1 each PO DAILY 04/27/17 [History] levoFLOXacin [Levaquin] 750 mg PO Q48H #1 tablet 04/30/17 [Rx] predniSONE [PredniSONE] 40 mg PO DAILY #5 tablet 04/30/17 [Rx] Allergies/Adverse Reactions: 3 Allergy/AdvReac Type Severity Reaction Status Date / Time ibuprofen Allergy See Verified 04/08/17 14:29 Comments Uppxvqo-Kio-Zmc Reductase Allergy Swelling Verified 04/08/17 14:29 Inhibitor of [Statins] Lip/Tongue/Throat Verapamil Allergy See Verified 04/08/17 14:29 Comments Certification: Further, I certify that my clinical findings support that this patient is homebound (i.e. absences from home require considerable and taxing effort and are for medical reasons or anglican services or infrequently or short duration when for other reasons) because: Homebound Reason: Patient requires assistance of a person or device to safely leave home Attestation: My signature below is to certify that this patient is under my care and that I, or nurse practitioner, or a physician's visitor services assistant working with me, has a face-to -face encounter with this patient.
== END 2017-04-30 13:33 | disposition home health service (06) | DRG 191 ==
LOC: 2ANU 16:38 → EMEROO 16:38 → 2ANU 20:03
PROVIDERS: ADMIT Nurse Practitioner; ATTEND Internal Medicine